=== PATIENT | male | born 1955 | race Caucasian/White ===

== ENCOUNTER 2020-08-07 00:28 | Emergency (ER) | payer MEDICARE, OTHER ==
--- NOTE | 2020-08-07 00:41 | ED Physician Documentation ---
PD HPI CHEST PAIN - Stated complaint Stated Complaint: CHEST PX - History obtained from History obtained from: Patient - History of Present Illness Timing - onset: How many hours ago (4), Today Timing - onset during: Rest (was trying to get to sleep) Timing - duration: Days (He has been having some intermittent chest pain and exertional chest pain for the last 1 or 2 days and some exertional fatigue for several days. Abrupt worsening of chest pain approximately 930 tonight while trying to sleep.) Timing - details: Abrupt onset (had had intermittent pains the past day but then abruptly worse 9:30 this evening.), Still present Quality: Pressure, Aching, Pain Location: Substernal, Epigastric Radiation: Left upper extremity. No: Neck Improved by: No: Rest Worsened by: No: Inspiration, Movement, Palpation Associated symptoms: Shortness of air, General Weakness. No: Nausea, Feeling faint / dizzy, Palpitations Similar symptoms before: Has not had sx before Recently seen: Not recently seen Review of Systems Constitutional: denies: Fever Nose: denies: Rhinorrhea / runny nose, Congestion Throat: denies: Sore throat Cardiac: denies: Palpitations, Pedal edema, Calf pain Respiratory: reports: Dyspnea (with exertion the past several days). denies: Cough, Wheezing GI: denies: Abdominal Pain, Nausea, Vomiting, Diarrhea, Bloody / black stool Musculoskeletal: denies: Neck pain, Back pain, Extremity swelling Neurologic: denies: Near syncope, Syncope, Altered mental status PD PAST MEDICAL HISTORY - Past Medical History Cardiovascular: Hypertension Respiratory: None Neuro: None Endocrine/Autoimmune: Type 2 diabetes GI: None - Allergies Allergies/Adverse Reactions: Allergies Allergy/AdvReac Type Severity Reaction Status Date / Time Penicillins Allergy Unknown Verified 08/07/20 00:53 - Living Situation Living Situation: reports: With spouse/s.o. Living Arrangement: reports: At home - Social History Does the pt smoke?: No Does the pt drink ETOH?: No Does the pt have substance abuse?: No - Family History Family history: reports: CAD PD ED PE NORMAL - Vitals Vital signs reviewed: Yes - General General: Alert and oriented X 3, No acute distress, Well developed/nourished - HEENT HEENT: Moist mucous membranes, Pharynx benign - Neck Neck: Supple, no meningeal sign, No adenopathy - Cardiac Cardiac: RRR, No murmur - Respiratory Respiratory: Clear bilaterally - Abdomen Abdomen: Soft, Non tender - Derm Derm: Normal color, Warm and dry - Extremities Extremities: No tenderness to palpate, Normal ROM s pain, No edema, No calf tenderness / cord - Neuro Neuro: Alert and oriented X 3, No motor deficit, Normal speech Eye Opening: Spontaneous Motor: Obeys Commands Verbal: Oriented GCS Score: 15 Results - Vitals Vitals: Vital Signs - 24 hr 08/07/20 08/07/20 08/07/20 00:35 00:52 01:05 Temperature 37.1 C 36.4 C L 36.5 C Heart Rate 63 65 68 Respiratory 14 20 16 Rate Blood Pressure 169/106 H 169/106 H 143/97 H O2 Saturation 99 98 98 Oxygen O2 Source Room air - EKG (time done) 00:38 Rate: Rate (enter#) (76) Rhythm: NSR [place]: Normal Intervals: Normal [place] QRS: Normal Ischemia: ST elevation c/w ischemia (inferior leads, with reciprocal changes anteriorly) Compare to prior EKG: Old EKG unavailable Computer interpretation: Agree with computer - Labs Labs: Laboratory Tests 08/07/20 08/07/20 08/07/20 00:45 00:45 00:45 WBC 9.1 RBC 5.62 Hgb 15.8 Hct 46.7 MCV 83.1 MCH 28.1 MCHC 33.8 RDW 12.8 Plt Count 314 MPV 10.0 Neut # (Auto) 4.5 Lymph # (Auto) 3.6 H [place] # (Auto) 0.7 Eos # (Auto) 0.2 Baso # (Auto) 0.1 Absolute Nucleated RBC 0.00 Nucleated RBC % 0.0 Sodium 135 Potassium 3.9 Chloride 96 L Carbon Dioxide 27 Anion Gap 12.0 BUN 14 Creatinine 0.9 Estimated GFR (MDRD) 84 L Glucose 261 H Calcium 10.3 Total Bilirubin 0.6 AST 16 ALT 19 Alkaline Phosphatase 69 Troponin I High Sens 150.9 H* Total Protein 7.1 Albumin 4.0 Globulin 3.1 Albumin/Globulin Ratio 1.3 Lipase 37 - Rads (name of study) chest xray Radiology: Prelim report reviewed (normal; no acute process), See rad report PD MEDICAL DECISION MAKING - ED course Complexity details: reviewed results, considered differential (EKG showing acute STEMI and his symptoms are consistent with that. He appears clinically stable with good blood pressure and heart rate. Initiated STEMI typical medications and the STEMI protocol for transfer), d/w patient, d/w nutrition consultant (Dr. Price emergency physician at [facility] who accepted transfer of the STEMI.) - Critical Care Time(min): 25 Time Includes: Direct patient care, Document care, Coordinate care, Medical consult Data interpretation: Pulse ox, CXR Procedures excluded from critical care time: EKG Departure - Departure Disposition: 02 Transfer Acute Care Hosp Clinical Impression: ST elevation myocardial infarction (STEMI) of inferior wall Chest pain Qualifiers: Chest pain type: precordial pain Qualified Code(s): R07.2 - Precordial pain Condition: Stable Record reviewed to determine appropriate education?: Yes Discharge Date/Time: 08/07/20 01:10
[2020-08-07] MEDS ORDERED: ASPIRIN CHEW 81 MG TABLET PO STA (00:49)
[2020-08-07] MEDS ORDERED: ATORVASTATIN 40 MG TABLET PO STA (00:52)
[2020-08-07 00:54] LABS: BASOPHILS # (AUTO) 0.1 10^3/uL (0.0-0.1); BASOPHILS % (AUTO) 0.7 %; EOSINOPHILS # (AUTO) 0.2 10^3/uL (0.0-0.7); EOSINOPHILS % (AUTO) 1.9 %; HGB - HEMOGLOBIN 15.8 g/dL (14.0-18.0); LYMPHOCYTES # (AUTO) 3.6 10^3/uL (1.5-3.5); LYMPHOCYTES % (AUTO) 39.6 %; MEAN CORPUSCULAR HEMOGLOBIN 28.1 pg (27.0-31.0); MEAN CORPUSCULAR HGB CONC 33.8 g/dL (32.0-36.0); MEAN CORPUSCULAR VOLUME 83.1 fL (80.0-94.0); MONOCYTES # (AUTO) 0.7 10^3/uL (0.0-1.0); NEUTROPHILS # (AUTO) 4.5 10^3/uL (1.5-6.6); NEUTROPHILS % (AUTO) 49.6 %; PLT - PLATELET COUNT 314 10^3/uL (130-450); RED BLOOD COUNT 5.62 10^6/uL (4.70-6.10); RED CELL DISTRIBUTION WIDTH 12.8 % (12.0-15.0); WHITE BLOOD COUNT 9.1 x10^3/uL (4.8-10.8)
[2020-08-07] MEDS ORDERED: MORPHINE 2 MG/ML CARPUJECT IVP STA (00:54)
[2020-08-07] MEDS ORDERED: SODIUM CHLORIDE 0.9% 1,000 ML IV STA (00:54)
[2020-08-07] MEDS ORDERED: NITROGLYCERIN SL 0.4 MG TABLET SL STA (00:54)
[2020-08-07] MEDS ORDERED: HEPARIN 25000UNITS/500ML (D5W) 25,000 UNIT/500 ML BAG IV SCH (01:00)
[2020-08-07] MEDS ORDERED: HEPARIN 25000UNITS/500ML (D5W) 25,000 UNIT/500 ML BAG IV ONE (01:01)
[2020-08-07 01:06] LABS: ALBUMIN/GLOBULIN RATIO 1.3 (1.0-2.2); BILIRUBIN,TOTAL 0.6 mg/dL (0.2-1.0); CALCIUM 10.3 mg/dL (8.5-10.3); CREATININE 0.9 mg/dL (0.6-1.2); TOTAL PROTEIN 7.1 g/dL (6.7-8.2)
[2020-08-07 01:25] VITALS: BP 143/97
[2020-08-07 01:59] LABS: C. PNEUMONIAE- RESP PCR PANEL NOT DETECTED
--- NOTE | 2020-08-07 08:03 | XRAY Report ---
PROCEDURE: Chest 1 View X-Ray INDICATIONS: Chest pain TECHNIQUE: One view of the chest was acquired. COMPARISON: None. FINDINGS: Surgical changes and devices: None. Lungs and pleura: No pleural effusions or pneumothorax. Lungs are clear. Mediastinum: Mediastinal contours appear normal. Heart size is normal. Bones and chest wall: No suspicious bony lesions. Overlying soft tissues appear unremarkable. IMPRESSION: Chest without acute cardiopulmonary abnormalities or focal airspace disease. No significant discrepancy with initial interpretation by overnight radiologist. Reviewed by: Wood Doty MD on 08/07/2020 8:02 AM PST Approved by: Wood Doty MD on 08/07/2020 8:02 AM [facility] Station ID: [id number]
== END 2020-08-07 01:10 | disposition short-term general hospital (02) ==
LOC: ED 00:28
DX: I21.19 ST elevation (STEMI) myocardial infarction involving other coronary artery of inferior wall (principal); I10 Essential (primary) hypertension; Z82.49 Family history of ischemic heart disease and other diseases of the circulatory system; E11.9 Type 2 diabetes mellitus without complications; Z20.822 Contact with and (suspected) exposure to COVID-19
CPT/HCPCS: 36415; 71045; 80053; 83690; 84484; 85025; 87631; 93005; 96374; 96375; 99284; 99285; A9270; 0202U

== ENCOUNTER 2020-08-07 01:16 | Outpatient (CLI) | payer MEDICARE, OTHER | END 2020-08-07 01:17 | disposition short-term general hospital (02) | LOC: EMS 01:16 | PROVIDERS: ATTEND Surgery | DX: I21.3 ST elevation (STEMI) myocardial infarction of unspecified site (principal) | CPT/HCPCS: A0425; A0426 ==

== ENCOUNTER 2020-11-07 02:29 | Emergency (ER) | payer MEDICARE, OTHER ==
--- NOTE | 2020-11-07 02:47 | ED Physician Documentation ---
PD HPI CHEST PAIN - Stated complaint Stated Complaint: CHEST PX - Chief complaint Chief Complaint: Cardiac - History obtained from History obtained from: Patient - History of Present Illness Timing - onset: Enter time (29), Today Timing - onset during: Rest Timing - duration: Hours (2) Timing - details: Abrupt onset, Still present Pain level max: 3 Pain level now: 3 Quality: Aching Location: Left chest Radiation: Left upper extremity Worsened by: No: Exertion, Inspiration, Eating, Movement, Palpation, Position Similar symptoms before: Diagnosis (NV 08-07-20) Recently seen: Not recently seen - Additional information Additional information: Previously well 65-year-old male who has a history of coronary artery disease and had an inferior NV in July of this year had one stent placed and had another vessel that was diseased but did not require stenting. The patient r ecalls that he had immediate relief of pain when the stent was placed and this evening he developed an aching sensation in his left chest radiating to his left arm. He did not develop diaphoresis nausea or shortness of breath. He rates the pain as a 3 out of 10 and describes it as an ache. He is not able to describe any modifying factors for the pain. He was able to get back to sleep for about 1 hour after awakening at 00 30. When he awoke again with this pain he decided to come to the emergency department. He indicates that earlier in the day he was removing brush on his property taking down branches and the top of a tree. He did do some heavy lifting lifting something into the bucket of his tractor. He did not feel any strain at that time and took a walk with his dogs for about 40 minutes as they usually do felt no pains at that time either. Review of Systems Constitutional: denies: Fever Eyes: denies: Decreased vision Ears: denies: Ear pain Nose: denies: Rhinorrhea / runny nose, Congestion Throat: denies: Sore throat Cardiac: reports: Chest pain / pressure. denies: Palpitations, Pedal edema, Calf pain Respiratory: denies: Dyspnea, Cough, Wheezing GI: denies: Abdominal Pain, Nausea, Vomiting : denies: Dysuria, Frequency Skin: denies: Rash Musculoskeletal: denies: Neck pain, Back pain, Extremity pain Neurologic: denies: Generalized weakness, Focal weakness, Numbness PD PAST MEDICAL HISTORY - Past Medical History Cardiovascular: Hypertension Respiratory: None Neuro: None Endocrine/Autoimmune: Type 2 diabetes GI: None - Present Medications Home Medications: Ambulatory Orders Medication Instructions Recorded Confirmed Aspirin [[place] Aspirin] 81 mg PO DAILY 11/07/20 11/07/20 Clopidogrel [Plavix] 75 mg PO DAILY 11/07/20 11/07/20 Empagliflozin [Jardiance] 10 mg PO DAILY 11/07/20 11/07/20 Insulin Glargine [Lantus Solostar] 10 unit SUBQ DAILY 11/07/20 11/07/20 Telmisartan [Micardis] 40 mg PO DAILY 11/07/20 11/07/20 carvediloL [Coreg] 3.125 mg PO BID 11/07/20 11/07/20 metFORMIN [Glucophage] 1,000 mg PO BID 11/07/20 11/07/20 - Allergies Allergies/Adverse Reactions: Allergies Allergy/AdvReac Type Severity Reaction Status Date / Time Penicillins Allergy Unknown Verified 08/07/20 00:53 - Social History Does the pt smoke?: No Smoking Status: Never smoker Does the pt drink ETOH?: No Does the pt have substance abuse?: No PD ED PE NORMAL - Vitals Vital signs reviewed: Yes - General General: Alert and oriented X 3, No acute distress, Well developed/nourished - HEENT HEENT: Atraumatic, PERRL, EOMI - Neck Neck: Supple, no meningeal sign, No bony TTP - Cardiac Cardiac: RRR, No murmur - Respiratory Respiratory: No respiratory distress, Clear bilaterally - Abdomen Abdomen: Normal bowel sounds, Soft, Non tender, Non distended, No organomegaly - Back Back: No CVA TTP, No spinal TTP - Derm Derm: Normal color, Warm and dry, No rash - Extremities Extremities: No deformity, No edema - Neuro Neuro: Alert and oriented X 3, flow trader 2-12 intact, No motor deficit, No sensory deficit, Normal speech Eye Opening: Spontaneous Motor: Obeys Commands Verbal: Oriented GCS Score: 15 - Psych Psych: Normal mood, Normal affect Results - Vitals Vitals: Vital Signs - 24 hr 11/07/20 11/07/20 11/07/20 02:35 02:38 02:55 Temperature 36.4 C L Heart Rate 73 73 Respiratory 14 15 Rate Blood Pressure 156/99 H 124/88 H Blood Pressure 124/88 H [Left] O2 Saturation 98 95 11/07/20 11/07/20 11/07/20 03:00 03:30 04:00 Temperature 36.6 C Heart Rate 74 76 69 Respiratory 15 15 13 Rate Blood Pressure 127/87 H 129/89 H 125/86 H Blood Pressure [Left] O2 Saturation 95 93 94 11/07/20 11/07/20 11/07/20 04:30 05:00 05:30 Temperature 36.5 C Heart Rate 72 70 68 Respiratory 12 11 L 14 Rate Blood Pressure 133/89 H 127/84 H 129/90 H Blood Pressure [Left] O2 Saturation 94 96 96 11/07/20 11/07/20 06:00 06:23 Temperature 36.6 C Heart Rate 70 71 Respiratory 15 20 Rate Blood Pressure 139/89 H 139/89 H Blood Pressure [Left] O2 Saturation 96 95 Oxygen O2 Source Room air - EKG (time done) 0235 Rate: Rate (enter#) (70) Rhythm: NSR Intervals: Wide QRS Compare to prior EKG: Changed from prior EKG (Since the prior tracing on 08/07/[address] elevation in inferior leads has resolved. The previously seen intraventricular conduction delay remains present and unchanged.) Computer interpretation: Agree with computer - Labs Labs: Laboratory Tests 11/07/20 11/07/20 11/07/20 02:41 02:41 02:41 WBC 6.4 RBC 5.40 Hgb 15.3 Hct 46.0 MCV 85.2 MCH 28.3 MCHC 33.3 RDW 13.4 Plt Count 277 MPV 9.4 Neut # (Auto) 3.3 Lymph # (Auto) 2.1 [place] # (Auto) 0.7 Eos # (Auto) 0.2 Baso # (Auto) 0.0 Absolute Nucleated RBC 0.00 Nucleated RBC % 0.0 Sodium 136 Potassium 3.8 Chloride 101 Carbon Dioxide 26 Anion Gap 9.0 BUN 21 H Creatinine 0.9 Estimated GFR (MDRD) 84 L Glucose 167 H Calcium 8.8 Total Bilirubin 0.7 AST 14 ALT 19 Alkaline Phosphatase 58 Troponin I High Sens 12.0 Total Protein 6.8 Albumin 3.8 Globulin 3.0 Albumin/Globulin Ratio 1.3 Lipase 33 11/07/20 05:10 WBC RBC Hgb Hct MCV MCH MCHC RDW Plt Count MPV Neut # (Auto) Lymph # (Auto) [place] # (Auto) Eos # (Auto) Baso # (Auto) Absolute Nucleated RBC Nucleated RBC % Sodium Potassium Chloride Carbon Dioxide Anion Gap BUN Creatinine Estimated GFR (MDRD) Glucose Calcium Total Bilirubin AST ALT Alkaline Phosphatase Troponin I High Sens 75.8 H* Total Protein Albumin Globulin Albumin/Globulin Ratio Lipase - Rads (name of study) chest Radiology: Prelim report reviewed (Impression: 1. No acute cardiopulmonary process.), EMP read indepedently, See rad report PD MEDICAL DECISION MAKING - ED course Complexity details: reviewed old records, reviewed results, re-evaluated patient, considered differential, d/w patient ED course: 65-year-old male with a history of NV 4 months ago and placement of a single stent has developed chest pain again in the left side of the low nature and without electrocardiographic changes. Initial troponin is negative. A repeat troponin at 2 hours is elevated at 75.4 and a bed a [facility] is sought for NSTEMI. Dr. Wallace is consulted in the case and graciously agrees to accept the patient in transfer. Heparin has been started per protocol and the patient has taken his Plavix and aspirin. The patient did receive the J&J vaccine 10 days ago. Departure - Departure Disposition: 02 Transfer Acute Care Hosp Clinical Impression: NSTEMI (non-ST elevated myocardial infarction) Condition: Stable
[2020-11-07 02:48] LABS: BASOPHILS % (AUTO) 0.6 %; EOSINOPHILS # (AUTO) 0.2 10^3/uL (0.0-0.7); EOSINOPHILS % (AUTO) 2.8 %; HGB - HEMOGLOBIN 15.3 g/dL (14.0-18.0); LYMPHOCYTES # (AUTO) 2.1 10^3/uL (1.5-3.5); LYMPHOCYTES % (AUTO) 32.6 %; MEAN CORPUSCULAR HEMOGLOBIN 28.3 pg (27.0-31.0); MEAN CORPUSCULAR HGB CONC 33.3 g/dL (32.0-36.0); MEAN CORPUSCULAR VOLUME 85.2 fL (80.0-94.0); MEAN PLATELET VOLUME 9.4 fL (7.4-11.4); MONOCYTES # (AUTO) 0.7 10^3/uL (0.0-1.0); MONOCYTES % (AUTO) 11.4 %; NEUTROPHILS # (AUTO) 3.3 10^3/uL (1.5-6.6); NEUTROPHILS % (AUTO) 52.3 %; PLT - PLATELET COUNT 277 10^3/uL (130-450); RED CELL DISTRIBUTION WIDTH 13.4 % (12.0-15.0); WHITE BLOOD COUNT 6.4 x10^3/uL (4.8-10.8)
[2020-11-07 03:01] LABS: ALBUMIN 3.8 g/dL (3.2-5.5); ALBUMIN/GLOBULIN RATIO 1.3 (1.0-2.2); BILIRUBIN,TOTAL 0.7 mg/dL (0.2-1.0); CALCIUM 8.8 mg/dL (8.5-10.3); CREATININE 0.9 mg/dL (0.6-1.2); POTASSIUM 3.8 mmol/L (3.5-5.0); TOTAL PROTEIN 6.8 g/dL (6.7-8.2)
[2020-11-07] MEDS ORDERED: HEPARIN 25000UNITS/500ML (D5W) 25,000 UNIT/500 ML BAG IV SCH (06:00)
[2020-11-07 06:24] VITALS: BP 139/89
[2020-11-07 07:04] LABS: CORONAVIRUS 229E-RESP PCR NOT DETECTED; CORONAVIRUS HKU1-RESP PCR NOT DETECTED; CORONAVIRUS NL63-RESP PCR NOT DETECTED; CORONAVIRUS OC43-RESP PCR NOT DETECTED; HUMAN METAPNEUMOVIRUS NOT DETECTED; RHINOVIRUS/ENTEROVIRUS NOT DETECTED; SARS-CoV-2 -RESP PCR PANEL NOT DETECTED
[2020-11-07 07:05] LABS: B. PARAPERTUSSIS- RESP PCR PAN NOT DETECTED; B. PERTUSSIS- RESP PCR PANEL NOT DETECTED; C. PNEUMONIAE- RESP PCR PANEL NOT DETECTED; INFLUENZA A- RESP PCR PANEL NOT DETECTED; INFLUENZA B - RESP PCR PANEL NOT DETECTED; M. PNEUMONIAE- RESP PCR PANEL NOT DETECTED; PARAINFLUENZA VIRUS 1 NOT DETECTED; PARAINFLUENZA VIRUS 2 NOT DETECTED; PARAINFLUENZA VIRUS 3 NOT DETECTED; PARAINFLUENZA VIRUS 4 NOT DETECTED; RSV- RESP PCR PANEL NOT DETECTED
--- NOTE | 2020-11-07 08:19 | XRAY Report ---
PROCEDURE: Chest 1 View X-Ray INDICATIONS: Chest pain TECHNIQUE: One view of the chest was acquired. COMPARISON: 08/07/2020 FINDINGS: Surgical changes and devices: None. Lungs and pleura: No pleural effusions or pneumothorax. Lungs are clear. Mediastinum: Mediastinal contours appear normal. Heart size is normal. Bones and chest wall: No suspicious bony lesions. Overlying soft tissues appear unremarkable. IMPRESSION: No acute disease. Findings are concordant with the preliminary study interpretation provided at the time of the study. Reviewed by: Gee Taylor MD on 11/07/2020 8:18 AM PDT Approved by: Gee Taylor MD on 11/07/2020 8:18 AM PDT Station ID: [id number]
== END 2020-11-07 07:32 | disposition short-term general hospital (02) ==
LOC: ED 02:29
DX: I21.4 Non-ST elevation (NSTEMI) myocardial infarction (principal); I25.10 Atherosclerotic heart disease of native coronary artery without angina pectoris; I10 Essential (primary) hypertension; I25.2 Old myocardial infarction; Z95.5 Presence of coronary angioplasty implant and graft; Z79.02 Long term (current) use of antithrombotics/antiplatelets; Z79.82 Long term (current) use of aspirin; E11.9 Type 2 diabetes mellitus without complications; Z79.4 Long term (current) use of insulin; Z20.822 Contact with and (suspected) exposure to COVID-19
CPT/HCPCS: 0202U; 36415; 80053; 83690; 84484; 85025; 93005; 96374; 99284

== ENCOUNTER 2020-11-07 07:34 | Outpatient (CLI) | payer MEDICARE, OTHER | END 2020-11-07 07:35 | disposition short-term general hospital (02) | LOC: EMS 07:34 | PROVIDERS: ATTEND Emergency Medicine | DX: I21.4 Non-ST elevation (NSTEMI) myocardial infarction (principal) | CPT/HCPCS: A0425; A0426 ==